=== PATIENT | male | born 1945 | race Caucasian/White ===

== ENCOUNTER → 2019-12-14 | Outpatient (CLI) | payer MEDICARE, SELFPAY ==
--- NOTE | 2019-12-14 10:00 | PET_ITS ---
EXAMINATION: FDG PET-CT INDICATIONS: A 74-year-old male with reported history of carcinoma of the lung presenting for restaging examination and evaluation of pulmonary nodularity. COMPARISON EXAMINATION: CT of the chest report dated 12/08/2019 NON-INDEX LESION SIZE SUV INTERPRETATION Right upper posterior lung-right upper lobe, linear 0.8 Quantitative criteria for viable neoplasm are not fulfilled TECHNIQUE: Following the intravenous administration of 19.2 mCi of F-18 deoxyglucose via the left antecubital fossa, multiplanar image acquisitions of the neck, chest, abdomen and pelvis to level of mid thigh, obtained at one hour post radiopharmaceutical administration contemporaneously interpreted with the current CT of the neck, chest, abdomen and pelvis, to level of mid thigh, dated 12/14/[address] of the chest report dated 12/08/2019 reveals: BLOOD GLUCOSE LEVEL:?? 99 mg/dl?HEIGHT:?71 inches?WEIGHT: 128 lbs. FINDINGS: 1. There is no quantitative scintigraphic evidence of significant abnormal increased glucose metabolism within the context of the bilateral hemithorax pulmonary parenchyma to correlate with structural changes noted on review of CT of the thorax dated 12/14/2019. 2. Normal physiologic distribution of the radiopharmaceutical is apparent in the hepatic (2.5) and splenic parenchyma, both renal units, bladder and visualized intestinal tract. The visualized portion of the cerebral cortex demonstrate symmetric and preserved glucose metabolism. Diffuse radiopharmaceutical concentration is noted in all four quadrants of the abdomen and pelvis. A linear increase in glucose concentration is observed in the right upper posterior lung generating a calculated maximal standard uptake value of 0.8. Pertinent CT findings are as follows: CHEST: Significant emphysematous changes are noted in the bilateral upper-lower lung zones. Parenchymal densities defined in the bilateral hemithorax reveal no evidence of discernible increased FDG uptake. There is atherosclerotic calcification defined in the thoracic aorta without evidence of dilatation-aneurysm formation. Coronary arterial calcification is observed. 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 ABDOMEN AND PELVIS: There is atherosclerotic calcification defined in the abdominal aorta without evidence of dilatation-aneurysm formation. Pelvic arterial calcification is observed. A left inguinal hernia is noted with associated intestinal tract. Right and left subcentimeter inguinal soft tissue densities with fatty hilus are non-glucose avid. Dystrophic calcification is noted within the prostate gland without evidence of facilitated FDG uptake. SKELETAL: Degenerative changes are noted in the cervical, thoracic and lumbar spine. There is diffuse demineralization identified throughout the axial skeletal structures. PET/PET/CT Tumor Base -Thigh Init IMPRESSION: 1. NEGATIVE EXAMINATION. There is no definitive quantitative scintigraphic evidence of recurrent-metastatic/viable neoplasm. 2. The mild linear increase in FDG distribution noted in the right upper posterior lung-right upper lobe does not fulfill quantitative criteria for viable neoplasm. (Joellen et al, Journal of Nuclear Medicine 43:302 P, 2002). 3. Anatomic stability may be ensured in the ametabolic bilateral nodular parenchymal densities with repeat CT of the thorax in 3-6 months. (Deidre, Seminars in Thoracic and Cardiovascular Surgery 14:292, 2002). Electronic Signature Morris Correa D.O. Electronically Signed: Morris Correa DO at 23:05 EDT Tel , Service support ,
== END | disposition home or self-care (01) ==
PROVIDERS: PCP Family Medicine; Visit Provider Physician Assistant
DX: R91.8 Other nonspecific abnormal finding of lung field (principal); D49.1 Neoplasm of unspecified behavior of respiratory system
CPT/HCPCS: 78815; A9552